=== PATIENT | male | born 1980 | race Caucasian/White ===

== ENCOUNTER 2017-10-08 04:44 | Emergency (ER) | payer BC, OTHER ==
[~2017-10-08] VITALS: Ht 180.3 cm; Wt 100.4 kg
[~2017-10-08 04:44] MED LIST: DIVA-68; QUET300T5
[2017-10-08 04:46] VITALS: BP 134/83
[2017-10-08] MEDS ORDERED: BUPR200T2 PO (04:58)
[2017-10-08] MEDS ORDERED: SERT50TA5 PO (04:58)
[2017-10-08] MEDS ORDERED: MIRT15TA6 PO (04:58)
== END 2017-10-08 06:02 | disposition home or self-care (01) ==
LOC: ED 05:58
DX: J02.0 Streptococcal pharyngitis (principal); F31.9 Bipolar disorder, unspecified; F20.9 Schizophrenia, unspecified; Z88.5 Allergy status to narcotic agent
CPT/HCPCS: 99283

== ENCOUNTER 2019-07-27 03:13 | Emergency (ER) | payer MEDICAID ==
[~2019-07-27] VITALS: Ht 180.3 cm; Wt 97.6 kg
[~2019-07-27 03:13] MED LIST changes: +BUPR200T2 PO; +DIVA-61; -DIVA-68; +MIRT15TA94 PO; +SERT50TA28 PO
[2019-07-27 03:18] VITALS: BP 120/77
[2019-07-27] MEDS ORDERED: KETOROLAC 30 MG/1 ML ONE (03:55)
[2019-07-27] MEDS ORDERED: KETOROLAC 30 MG/1 ML IM ONE (04:00)
== END 2019-07-27 04:16 | disposition home or self-care (01) ==
LOC: ED 03:30
DX: R51 Headache (principal); F17.200 Nicotine dependence, unspecified, uncomplicated; K21.9 Gastro-esophageal reflux disease without esophagitis
CPT/HCPCS: 96372; 99283; J1885

== ENCOUNTER 2019-09-17 03:16 | Emergency (ER) | payer MEDICAID ==
[~2019-09-17] VITALS: Ht 180.3 cm; Wt 107.7 kg
[2019-09-17 04:21] VITALS: BP 138/74
== END 2019-09-17 04:23 | disposition home or self-care (01) ==
LOC: ED 04:00
CPT/HCPCS: 99283